=== PATIENT | female | born 1990 | race African-American/Black ===

== ENCOUNTER 2020-09-27 18:47 | Emergency (ER) | payer OTHER ==
[~2020-09-27] VITALS: Ht 157.5 cm; Wt 68.0 kg
[2020-09-27 19:38] LABS: URINE BILIRUBIN NEGATIVE (Negative); URINE BLOOD NEGATIVE (Negative); URINE COLOR YELLOW; URINE GLUCOSE-RANDOM* NEGATIVE (Negative); URINE KETONES NEGATIVE (Negative); URINE LEUKOCYTES-REFLEX NEGATIVE (Negative); URINE NITRITE-REFLEX NEGATIVE (Negative); URINE PROTEIN (DIPSTICK) NEGATIVE (Negative); URINE UROBILINOGEN 0.2 E.U./dl (0.2-1.0)
[2020-09-27 19:41] LABS: URINE CLARITY SL HAZY
[2020-09-27 21:57] LABS: ABSOLUTE NEUTROPHILS 2.9 thou/uL (1.4-8.2); BASOPHILS 0.6 % (0.0-2.0); HEMATOCRIT 34.9 % (37.0-47.0); HEMOGLOBIN 11.4 gm/dL (12.0-15.0); LYMPHOCYTES 47.2 % (24.0-44.0); MCH 28.8 pg (26.0-34.0); MCHC 32.6 g/dL (28.0-37.0); MCV 88.4 fL (80.0-100.0); MONOCYTES 7.3 % (1.0-8.0); PLATELET COUNT 229 thou/uL (150-400); POLYS 42.9 % (36.0-66.0); RBC 3.95 mil/uL (4.20-5.00); RDW 13.2 % (10.5-14.5); WBC 6.7 thou/uL (4.0-11.0)
[2020-09-27] MEDS ORDERED: VISTARIL 25 MG25 M1 PO (22:03)
[2020-09-27] MEDS ORDERED: ULTRAM 50MG TAB50 MG PO (22:03)
[2020-09-27 22:05] LABS: ANION GAP 10 mmol/L (7-16); BUN 11 mg/dL (7-18); CALCIUM 9.1 mg/dL (8.5-10.1); CHLORIDE 104 mmol/L (98-107); CO2 26 mmol/L (21-32); CREATININE 0.5 mg/dL (0.6-1.0); GLUCOSE 102 mg/dL (74-106); SODIUM 140 mmol/L (136-145)
[2020-09-27 22:15] LABS: ALBUMIN 3.4 g/dL (3.4-5.0); LIPASE 185 U/L (73-393); SGOT 15 U/L (15-37); SGPT 29 U/L (14-59); TOTAL BILIRUBIN 0.2 mg/dL (0.2-1.0); TOTAL PROTEIN 6.8 g/dL (6.4-8.2); TROPONIN-I <0.06 ng/mL (<0.06)
[2020-09-27 22:31] VITALS: BP 112/79
--- NOTE | 2020-09-28 15:23 | EKG ---
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
== END 2020-09-27 22:35 | disposition home or self-care (01) ==
LOC: ER 18:47
PROVIDERS: Physician Assistant
DX: R07.89 Other chest pain (principal); N83.202 Unspecified ovarian cyst, left side; R30.9 Painful micturition, unspecified; R11.2 Nausea with vomiting, unspecified

== ENCOUNTER 2021-06-01 13:05 | Emergency (ER) | payer OTHER ==
[~2021-06-01] VITALS: Ht 157.5 cm; Wt 101.2 kg
[~2021-06-01 13:05] MED LIST: ULTRAM 50MG TAB50 MG PO; VISTARIL 25 MG25 M1 PO
== END 2021-06-01 13:46 | disposition home or self-care (01) ==
LOC: ER 13:05
PROVIDERS: Nurse Practitioner
DX: R68.83 Chills (without fever) (principal); R51.9 Headache, unspecified; Z20.822 Contact with and (suspected) exposure to COVID-19; Z98.51 Tubal ligation status